=== PATIENT | male | born 1970 | race Two or more races ===

== ENCOUNTER 2016-08-21 09:05 | Emergency (ER) | payer OTHER ==
[2016-08-21 09:16] VITALS: BP 155/68; PULSE 68; TEMP 98.5; BMI 25.0
--- NOTE | 2016-08-21 10:08 | PDOC ---
History of Present Illness - General Chief Complaint: Cold Symptoms Stated Complaint: EMPLOYEE, COUGH Time Seen by Provider: 08/21/16 09:40 History Source: Patient Exam Limitations: No Limitations - History of Present Illness Initial Comments: 08/21/16 10:03 CC sore throat x 1 week post exposure to bleach at work at [employer] Timing/Duration: reports: just prior to arrival Severity: reports: mild Possible Cause: Yes: no prior episodes Modifying Factors: improves with: coughing. worse with: albuterol inhaler, albuterol nebulizer Associated Symptoms: reports: sore throat. denies: facial pain, lightheadedness , muscle aches, nasal drainage, wheezing Past History - Past Medical History Allergies/Adverse Reactions: Allergies Allergy/AdvReac Type Severity Reaction Status Date / Time minocycline Allergy Verified 08/21/16 09:16 Home Medications: Ambulatory Orders NK [No Known Home Medication] 03/24/15 Diabetes: Yes (PRE-DIABETIC) Suicide Attempt (Hx): No - Psycho/Social/Smoking Cessation Hx Anxiety: No Suicidal Ideation: No Smoking Status: No Smoking History: Never smoked Have you smoked in the past 12 months: No Number of Cigarettes Smoked Daily: 0 Information on smoking cessation initiated: No Hx Alcohol Use: No Drug/Substance Use Hx: No Substance Use Type: Alcohol Review of Systems - Review of Systems Constitutional: No: Chills, Fever, Malaise HEENTM: Yes: Other (no hoarseness) Respiratory: Yes: Cough, Other (gets wose at night time; ok during day). No: Stridor, Wheezing, Productive cough Cardiac (ROS): No: Symptoms Reported ABD/GI: No: Symptoms Reported *Physical Exam - Vital Signs Last Vital Signs Temp Pulse Resp BP Pulse Ox 98.5 F 68 18 155/68 100 08/21/16 09:13 08/21/16 09:13 08/21/16 09:13 08/21/16 09:13 08/21/16 09:13 - Physical Exam General Appearance: Yes: Appropriately Dressed. No: Apparent Distress HEENT: positive: TMs Normal, Pharynx Normal. negative: Muffled/Hoarse voice, Pharyngeal Erythema, Tonsillar Exudate Neck: positive: Supple. negative: Tender, Rigid, Stridor Respiratory/Chest: positive: Lungs Clear, Normal Breath Sounds. negative: Chest Tender, Rhonchi, Stridor, Wheezing Cardiovascular: positive: Regular Rhythm, Regular Rate. negative: Murmur Medical Decision Making - Medical Decision Making 08/21/16 10:[address] Justin for reevaluation and possible scope *DC/Admit/Observation/Transfer Diagnosis at time of Disposition: Sore throat - Discharge Dispostion Disposition: HOME Condition at time of disposition: Stable Admit: No - Patient Instructions Additional Instructions: gargle; see Dr Justin IGNACIO for evaluation
--- NOTE | 2016-08-21 10:15 | PDOC ---
*Physical Exam - Vital Signs Last Vital Signs Temp Pulse Resp BP Pulse Ox 98.5 F 68 18 155/68 100 08/21/16 09:13 08/21/16 09:13 08/21/16 09:13 08/21/16 09:13 08/21/16 09:13 *DC/Admit/Observation/Transfer Diagnosis at time of Disposition: Sore throat - Prescriptions Prescriptions: Benzocaine/Menthol [Cepacol Sore Throat Lozenge] 1 each MM Q3H5XD #60 lozenge Albuterol Sulfate Inhaler - [Ventolin HFA Inhaler -] 2 inh PO Q4H #1 inh - Referrals Referrals: STAFF,NOT ON [Primary Care Provider] - Daniel Justin MD [Staff Physician] - - Patient Instructions Additional Instructions: gargle; see Dr Nhan PIERRE for evaluation - Post Discharge Activity
== END 2016-08-21 10:26 | disposition home or self-care (01) ==
LOC: JERFT 09:05
DX: R07.0 Pain in throat (principal); T54.3X1A Toxic effect of corrosive alkalis and alkali-like substances, accidental (unintentional), initial encounter; Y92.238 Other place in hospital as the place of occurrence of the external cause; Y93.H9 Activity, other involving exterior property and land maintenance, building and construction; Y99.0 Civilian activity done for income or pay
CPT/HCPCS: 99281-25

== ENCOUNTER 2019-02-11 12:06 | Emergency (ER) | payer OTHER ==
[2019-02-11 12:09] VITALS: BP 149/75; PULSE 87; TEMP 99.6; BMI 25.0
[2019-02-11] MEDS ORDERED: ACETAMINOPHEN 500 MG TABLET (FP) PO ONE (12:36)
[2019-02-11] MEDS ORDERED: ACETAMINOPHEN 325 MG TABLET (FP) ONE (12:43)
--- NOTE | 2019-02-11 13:21 | PDOC ---
History of Present Illness - General Chief Complaint: Cold Symptoms Stated Complaint: FEVER\BODY PAIN Time Seen by Provider: 02/11/19 12:30 - History of Present Illness Initial Comments: 02/11/19 13:20 48-year-old male without comorbidities presents for evaluation of body aches and fever x3 days Past History - Past Medical History Allergies/Adverse Reactions: Allergies Allergy/AdvReac Type Severity Reaction Status Date / Time minocycline Allergy Verified 02/11/19 12:10 Home Medications: Ambulatory Orders Albuterol Sulfate Inhaler - [Ventolin HFA Inhaler -] 2 inh PO Q4H #1 inh Benzocaine/Menthol [Cepacol Sore Throat Lozenge] 1 each MM Q3H5XD #60 lozenge COPD: Yes Diabetes: Yes (PRE-DIABETIC) - Psycho Social/Smoking Cessation Hx Smoking Status: No Smoking History: Never smoked Have you smoked in the past 12 months: No Number of Cigarettes Smoked Daily: 0 Information on smoking cessation initiated: No Hx Alcohol Use: No Drug/Substance Use Hx: No Substance Use Type: Alcohol Review of Systems - Review of Systems Constitutional: Yes: Fever *Physical Exam - Vital Signs Last Vital Signs Temp Pulse Resp BP Pulse Ox 99.6 F 87 19 149/75 100 02/11/19 12:08 02/11/19 12:08 02/11/19 12:08 02/11/19 12:08 02/11/19 12:08 - Physical Exam Comments: 02/11/19 13:20 GENERAL: The patient is awake, alert, and fully oriented, in no acute distress. HEAD: Normal with no signs of trauma. EYES: sclera anicteric, conjunctiva clear. ENT: Ears normal NECK: Normal range of motion LUNGS: Breath sounds equal, clear to auscultation bilaterally. No wheezes, and no crackles. HEART: S1 and S2 without murmur, rub or gallop. ABDOMEN: Soft, nontender, normoactive bowel sounds. No guarding, no rebound. No masses. EXTREMITIES: Normal range of motion, no edema. No clubbing or cyanosis. No cords, erythema, or tenderness. NEUROLOGICAL: Cranial nerves II through XII grossly intact. Normal speech, normal gait. PSYCH: Normal mood, normal affect. SKIN: Warm, Dry, normal turgor, no rashes or lesions noted. ED Treatment Course - Medications Given in the ED: ED Medications Discontinued Medications Generic Name Dose Route Start Last Admin Trade Name Oswaldo PRN Reason Stop Dose Admin Acetaminophen 1,000 mg 02/11/19 12:36 02/11/19 12:50 Tylenol - PO 02/11/19 12:37 1,000 mg ONCE ONE Administration Medical Decision Making - Medical Decision Making 02/11/19 13:20 Influenza negative most likely viral upper respiratory infection supportive care with Tylenol and Motrin follow-up with primary care physician Discharge - Discharge Information Problems reviewed: Yes Clinical Impression/Diagnosis: Viral upper respiratory infection Condition: Stable Disposition: HOME - Admission No - Follow up/Referral Referrals: Tutu Pelaez MD [Staff Physician] - - Patient Discharge Instructions Patient Printed Discharge Instructions: DI for Viral Upper Respiratory Infection -- Adult Additional Instructions: Tylenol and Motrin as directed for fever return to the emergency room for worsening symptoms and without fail please follow-up with your primary care physician in 1 to 2 days for further evaluation and treatment options. Your flu test today was negative - Post Discharge Activity
== END 2019-02-11 13:28 | disposition home or self-care (01) ==
LOC: JER 12:06 → JERFT 12:06
DX: J06.9 Acute upper respiratory infection, unspecified (principal); B97.89 Other viral agents as the cause of diseases classified elsewhere; R73.03 Prediabetes; J44.9 Chronic obstructive pulmonary disease, unspecified
CPT/HCPCS: 87804; 99281-25

== ENCOUNTER 2022-02-23 09:30 | Emergency (ER) | payer OTHER ==
[2022-02-23 09:45] VITALS: BP 136/86; PULSE 73; RESP 17; TEMP 98.5; BMI 25.7
[2022-02-23 10:21] LABS: THROAT:GRP A STREP NOT DETECTED (NOTDETECTED)
== END 2022-02-23 11:06 | disposition home or self-care (01) ==
LOC: JER 09:30
DX: R05.1 Acute cough (principal)
CPT/HCPCS: 0241U-QW; 87651; 99283-25